=== PATIENT | female | born 1980 | race Two or more races ===

== ENCOUNTER 2018-11-08 07:51 | Day surgery (SDC) | payer OTHER ==
[~2018-11-08] VITALS: Ht 165.1 cm; Wt 113.9 kg
[2018-11-08] VITALS (13 sets, daily range): BP systolic 100–128; BP diastolic 61–82
--- NOTE | 2018-11-08 07:43 | Pre-Procedure Note/Attestation ---
Pre-Procedure Note/Attestation Complete Prior to Procedure Planned Procedure: right Procedure Narrative: knee diagnosctic arthroscopy, possible meniesectoy synovectomy Indications for Procedure Pre-Operative Diagnosis: right knee internal deragment Attestation I attest that I discussed the nature of the procedure; its benefits; risks and complications; and alternatives (and the risks and benefits of such alternatives ), prior to the procedure, with the patient (or the patient's legal videotape sales representative). I attest that, if there was a reasonable possibility of needing a blood transfusion, the patient (or the patient's legal videotape sales representative) was given the [facility] standardized written summary, pursuant to the [place] Blood Safety Act ([place] Health and Safety Code # 1645, as amended). I attest that I re-evaluated the patient just prior to the surgery and that there has been no change in the patient's H&P, except as documented below: Panda Mccoy MD Nov 08, 2018 07:43
--- NOTE | 2018-11-08 07:43 | Operative Note - PDOC ---
Operative Note Operative Note Pre-op Diagnosis: right knee internal deragment Procedure: see op report Post-op Diagnosis: same as pre-op plus Operative Findings: consistent w/pre-op dx studies Anesthesia: MAC Specimen: none Complications: none Condition: stable Estimated Blood Loss: none Implant(s) used?: No Panda Mccoy MD Nov 08, 2018 07:43
[~2018-11-08 07:51] MED LIST: D5 1/2NS 1,000 ML IV SCH; HYDROcodone/Acetamin 5/325 tab ORAL PRN; HYDROmorphone 1mg/ml Carpuject SUBQ PRN; Tylenol #3 tab (300mg/30mg) ORAL PRN; ceFAZolin 1gm IVPB IVPB ONE; celeBREX 200mg Cap **SURGERY PATIENTS ONLY ORAL ONE; oxyCONTIN 20mg tab ORAL ONE
[2018-11-08] MEDS ORDERED: celeBREX 200mg Cap **SURGERY PATIENTS ONLY ORAL ONE (08:49)
[2018-11-08] MEDS ORDERED: oxyCONTIN 20mg tab ORAL ONE (08:49)
[2018-11-08] MEDS ORDERED: EPINEPHrine 1mg/1ml Amp ONE (08:55)
[2018-11-08] MEDS ORDERED: Duramorph PF 5mg/10ml amp ONE (08:56)
[2018-11-08] MEDS ORDERED: Lidocaine 1% 10mg/ml/Epi 0.005mg/ml 30ml vial INJ ONE (08:56)
[2018-11-08] MEDS ORDERED: Bupivacaine 0.25% Inj 30ml INJ ONE (08:56)
[2018-11-08] MEDS ORDERED: Ketorolac 30mg Inj ONE ×2 (08:56→10:44)
[2018-11-08] MEDS ORDERED: Kenalog-40 1ml Vial ONE (08:56)
[2018-11-08] MEDS ORDERED: Sterile Water For Irrig 2000ml IRRIG ONE (09:00)
[2018-11-08] MEDS ORDERED: LR 1000ml ONE (09:00)
--- NOTE | 2018-11-08 09:00 | NUR ---
Unable to start IVF. Bhanu HOLDEN in surgery notified.
[2018-11-08] MEDS ORDERED: fentaNYL 100 mcg/2 mL IV ONE (09:19)
[2018-11-08] MEDS ORDERED: NS Irrig 4000ml IRRIG ONE (09:31)
--- NOTE | 2018-11-08 09:36 | Anethesia Preoperative Eval ---
LindsayBlnak montemayor Marycruz [employer] SALES REPRESENTATIVE 11/08/18 0936: Anesthesia Pre-op PMH/ROS General Date of Evaluation: Nov 08, 2018 Time of Evaluation: 09:00 Anesthesiologist: addis Mallampati Score Class I : Soft palate, uvula, fauces, pillars visible Class II: Soft palate, uvula, fauces visible Class III: Soft palate, base of uvula visible Class IV: Only hard plate visible Surgeon: jon Diagnosis: knee pain Surgical Procedure: Right nee Anesthesia History: none Family History: no anesthesia problems Allergies: Coded Allergies: No Known Allergies (Unverified , 11/07/18) Medications: see eMAR Patient NPO?: Yes NPO Date: Nov 08, 2018 NPO Time: 00:01 Past Medical History Cardiovascular: Denies: HTN, CAD, [place], valve dz, arrhythmia, other Pulmonary: Reports: KENDAL Gastrointestinal/Genitourinary: Denies: GERD, CRI, ESRD, other Neurologic/Psychiatric: Denies: dementia, CVA, depression/anxiety, TIA, other Endocrine: Denies: DM, hypothyroidism, steroids, other HEENT: Denies: cataract (L), cataract (R), glaucoma, NEZ PERCE (L), NEZ PERCE (R), other Hematology/Immune: Denies: anemia, DVT, bleeding disorder, other Musculoskeletal/Integumentary: Denies: OA, RA, DJD, DDD, edema, other Other: obesity PSxH Narrative: breast augmentation Anesthesia Pre-op Phys. Exam Physician Exam Last Vital Signs Date Time Temp Pulse Resp B/P (MAP) Pulse Ox O2 Delivery O2 Flow Rate FiO2 11/08/18 08:44 Room Air 11/08/18 08:35 97.8 88 18 128/80 99 Constitutional: NAD Neurologic: CN 2-12 intact Cardiovascular: RRR Respiratory: CTA Gastrointestinal: S/NT/ND Airway Exam Mallampati Classification 3 Mallampati Score: Class III MO: full ROM: full Dentures: no upper, no lower Anesthesia Pre-op A/P Labs Urine Test Test 11/08/18 08:10 Urine HCG, Qualitative Negative (NEGATIVE) Studies Pre-op Studies: EKG - sr Risk Assessment & Plan Plan: general Pre-Antibiotics Drug: ancef Given Within 1 Hr of Incision: Yes Time Given: 09:25 Rosa Cole [employer] SALES REPRESENTATIVE 11/08/18 1001: Anesthesia Pre-op PMH/ROS General Date of Evaluation: Nov 08, 2018 Time of Evaluation: 09:05 Anesthesiologist: sherrill ASA Score: ASA 2 Mallampati Score 3 Mallampati Classification: Class III Surgeon: jon Diagnosis: knee pain Surgical Procedure: knee scope Anesthesia History: none Family History: no anesthesia problems Allergies: Coded Allergies: No Known Allergies (Unverified , 11/07/18) Medications: see eMAR Patient NPO?: Yes NPO Date: Nov 08, 2018 Past Medical History Cardiovascular: Denies: HTN, CAD, [place], valve dz, arrhythmia, other Pulmonary: Denies: asthma, COPD, KENDAL, other Gastrointestinal/Genitourinary: Denies: GERD, CRI, ESRD, other Neurologic/Psychiatric: Denies: dementia, CVA, depression/anxiety, TIA, other Endocrine: Denies: DM, hypothyroidism, steroids, other HEENT: Denies: cataract (L), cataract (R), glaucoma, NEZ PERCE (L), NEZ PERCE (R), other Hematology/Immune: Denies: anemia, DVT, bleeding disorder, other Other: obesity PSxH Narrative: breast augmentation Anesthesia Pre-op Phys. Exam Physician Exam Constitutional: NAD Neurologic: CN 2-12 intact Cardiovascular: RRR Respiratory: CTA Gastrointestinal: S/NT/ND Airway Exam Mallampati Classification 3 Mallampati Score: Class III MO: full ROM: full Dentures: no upper, no lower Anesthesia Pre-op A/P Risk Assessment & Plan Plan: general LMA Pre-Antibiotics Drug: ancef Given Within 1 Hr of Incision: Yes Time Given: 09:10 Blank Donato [employer] SAL[employer] REPRESENTATIVE Nov 08, 2018 09:36 Rosa Cole CRNA Nov 08, 2018 10:01
[2018-11-08] MEDS ORDERED: Metoclopramide 10mg/2ml Inj ONE (09:41)
[2018-11-08] MEDS ORDERED: Propofol 200mg/20ml IV ONE (09:41)
[2018-11-08] MEDS ORDERED: Lidocaine 1% MPF 10mg/ml 5ml ONE (09:41)
[2018-11-08] MEDS ORDERED: Duramorph PF 5mg/10ml amp EPIDUR ONE (09:42)
--- NOTE | 2018-11-08 09:59 | Immediate Post-Op Evaluation ---
Immediate Post-Op Evalulation Immediate Post-Op Evalulation Procedure: right knee scope Date of Evaluation: Nov 08, 2018 Time of Evaluation: 09:57 IV Fluids: 600 Blood Pressure Systolic: 112 Blood Pressure Diastolic: 73 Pulse Rate: 88 Respiratory Rate: 16 O2 Sat by Pulse Oximetry: 100 Temperature (Fahrenheit): 97.4 Nausea: No Vomiting: No Complications none Patient Status: awake, reacts, patent Hydration Status: adequate Drug: ancef Given Within 1 Hr of Incision: Yes Time Given: 09:10 Rosa Cole CRNA Nov 08, 2018 09:59
[2018-11-08] MEDS ORDERED: Hydromorphone 0.5mg/0.5ml inj ONE (10:14)
[2018-11-08] MEDS ORDERED: Hydromorphone 0.5mg/0.5ml inj IVP SCH (10:17)
[2018-11-08] MEDS ORDERED: Ketorolac 30mg Inj IV SCH (10:45)
--- NOTE | 2018-11-08 10:51 | 48 Hour Post Anesthesia Eval ---
Post Anesthesia Evaluation Procedure: right knee scope Date of Evaluation: Nov 08, 2018 Time of Evaluation: 10:50 Blood Pressure Systolic: 125 0: 81 Pulse Rate: 77 Respiratory Rate: 14 Temperature (Fahrenheit): 97.5 O2 Sat by Pulse Oximetry: 99 Airway: patent Nausea: No Vomiting: No Hydration Status: adequate Cardiopulmonary Status: stable Mental Status/LOC: patient returned to baseline Follow-up Care/Observations: na Post-Anesthesia Complications: none Follow-up care needed: N/A Blank Donato CRNA Nov 08, 2018 10:51
--- NOTE | 2018-11-08 18:00 | Operative Note - Dictated ---
DATE OF OPERATION: 11/08/2018 PREOPERATIVE DIAGNOSIS: Right knee internal derangement, possible medial and lateral meniscus tear. POSTOPERATIVE DIAGNOSES: 1. Right knee hypertrophic fat pad and synovial tissue, medial and lateral patellofemoral compartment. 2. Right knee medial plica looks secondary. Procedure: 1. Right knee diagnostic arthroscopy 2. Right knee arthroscopic synovectomy/excision of fat pad medial, lateral, and patellafemoral compartment SURGEON: Panda Mccoy M.D. ANESTHESIA: MAC. INDICATION FOR PROCEDURE: The patient is a pleasant 38-year-old female with progressive right knee pain, failed conservative treatment, elected to undergo right knee diagnostic arthroscopy, possible synovectomy, meniscectomy based on intraoperative findings. Risks, limitations, expectations, and complications of the procedure were discussed in detail. All questions addressed. DESCRIPTION OF PROCEDURE: After informed consent was obtained, the patient was brought to the operating room, the patient was placed under general anesthesia. The right leg was prepped and draped in a sterile manner in usual fashion. Ancef was administered. Time-out was performed. Inferolateral stab incision was then made. Trocar was introduced into the knee joint. There was some resistance going to the lateral gutter. It was difficult to visualize the patellofemoral compartment due to hypertrophic fat pad and hypertrophic synovial tissue medially. Medial compartment was entered. Medial working portal was established and excision of the fat pad and synovectomy was performed in the medial compartment, intercondylar notch, and lateral compartment. Medial compartment was entered. The meniscus was probed and noted to be intact. The ACL was probed and noted to be intact. Lateral compartment was entered and was free of meniscal chondral damage. At this point, the camera was repositioned in the patellofemoral compartment and excision of the fat pad and synovium was completed. Once this was done, the patellofemoral compartment was better visualized. It showed no chondral damage. The area of the medial plica seem to be associated with a kissing lesion on the femoral condyle where it was rubbing against the bone. At this point, the instruments were removed. Portal sites were closed with 3-0 Monocryl sutures. Steri-Strips and a sterile dressing were applied. ESTIMATED BLOOD LOSS: None. COMPLICATIONS: None. SPECIMENS: None. Panda Mccoy M.D. DR: JULI JOB#: [id number] CC: SHERRY
== END 2018-11-08 11:55 | disposition home or self-care (01) ==
LOC: SUR 07:51
DX: M79.4 Hypertrophy of (infrapatellar) fat pad (principal); M67.261 Synovial hypertrophy, not elsewhere classified, right lower leg; M67.51 Plica syndrome, right knee; G47.33 Obstructive sleep apnea (adult) (pediatric); E66.9 Obesity, unspecified; Z68.41 Body mass index [BMI] 40.0-44.9, adult
CPT/HCPCS: 29876; 81025; J0171; J0690; J1170; J1885; J2405; J2704; J2765; J3010; J3301; J3490; 94003; 94150